=== PATIENT | male | born 1940 | race Caucasian/White ===

== ENCOUNTER 2018-09-23 23:22 | Inpatient (IN) | payer OTHER, MEDICARE ==
[~2018-09-23] VITALS: Ht 177.8 cm; Wt 92.9 kg
[~2018-09-23 23:22] MED LIST: ACET500; AMLO10 PO; ASPI81CH PO; ATEN50 PO; ATOR10 PO; Ambien5 MG PO; CLOP75 PO; DOC250 PO; FLUT.05NI; GABA300 PO; GLUCOSE PO; Glucophage1000 MG PO; HYDCHL12.5 PO; INSUASPI SC; INSULANPEN SUBD; Lantus100 UNIT/1 SQ; Lantus100 UNIT/1 SUBD; NAPR250 PO; NIAC500 PO; Nitrostat0.4 MG SL; RANI150 PO; ROSU10TA PO; ROSU5
[2018-09-23 23:43] LABS: BASOPHILS ABSOLUTE AUTO 0.01 K/mm3 (0.00-0.23); BASOPHILS PERCENT AUTO 0 % (0-2); EOSINOPHILS PERCENT AUTO 0 % (0-6); Hematocrit 36.7 % (37.0-53.0); IMMATURE GRAN ABSOLUTE AUTO 0.02 K/mm3 (0.00-0.10); IMMATURE GRAN PERCENT AUTO 0 % (0-1); LYMPHOCYTES ABSOLUTE AUTO 3.34 K/mm3 (0.84-5.20); LYMPHOCYTES PERCENT AUTO 32 % (21-46); MONOCYTES ABSOLUTE AUTO 1.12 K/mm3 (0.16-1.47); MONOCYTES PERCENT AUTO 11 % (4-13); Mean Corpuscular HGB 28.6 pg (26.0-34.0); Mean Corpuscular HGB Conc 32.7 g/dL (31.5-36.5); Mean Corpuscular Volume 88 fL (80-100); Mean Platelet Volume 9.9 fL (9.1-12.4); NEUTROPHILS ABSOLUTE AUTO 5.91 K/mm3 (1.96-9.15); NEUTROPHILS PERCENT AUTO 57 % (41-73); Platelet Count 438 K/mm3 (150-400); RDW Coefficient Variation 16.8 % (11.7-14.2); Red Blood Cell Count 4.19 M/mm3 (4.30-5.90)
[2018-09-23] MEDS ORDERED: ELIQUIS5 MG PO (23:44)
[2018-09-23] MEDS ORDERED: ALBU90OI INH (23:44)
[2018-09-23] MEDS ORDERED: Triamcinolone A15 G3 (23:48)
[2018-09-23] MEDS ORDERED: TRAM50 PO (23:49)
[2018-09-23] MEDS ORDERED: PREG150 PO (23:50)
[2018-09-23] MEDS ORDERED: ATHLETE S FOOT (23:50)
[2018-09-23] MEDS ORDERED: TAMS.4ER PO (23:50)
[2018-09-23] MEDS ORDERED: SENN187 PO (23:50)
[2018-09-23] MEDS ORDERED: Loratadine10 MG PO (23:52)
[2018-09-23] MEDS ORDERED: Isosorbide Mono30 MG PO (23:52)
[2018-09-23] MEDS ORDERED: METF500C PO (23:53)
[2018-09-23] MEDS ORDERED: MAGOXI400 PO (23:53)
[2018-09-23] MEDS ORDERED: METF500C (23:54)
[2018-09-23] MEDS ORDERED: FURO20 PO (23:54)
[2018-09-23] MEDS ORDERED: ATOR40TA PO (23:55)
[2018-09-23] MEDS ORDERED: BENZ100A PO (23:56)
[2018-09-23] MEDS ORDERED: CARV6.25 PO (23:56)
[2018-09-23] MEDS ORDERED: FERROUS SULFATE PO (23:57)
[2018-09-24 00:03] LABS: Alanine Aminotransfer (ALT/SGP 21 U/L (12-78); Albumin, Blood 3.1 g/dL (3.4-5.0); Albumin/Globulin Ratio 0.7 (0.8-1.8); Alk Phos 67 U/L (50-136); Anion Gap 8 mmol/L (6-16); Aspartate Aminotrans (AST/SGOT 14 U/L (12-37); Bilirubin, Total 0.3 mg/dL (0.1-1.0); Blood Urea Nitrogen 7 mg/dL (8-24); CO2, Blood 28 mmol/L (21-32); Calcium, Blood 8.4 mg/dL (8.5-10.1); Chloride, Blood 110 mmol/L (98-108); Creatinine, Blood 0.87 mg/dL (0.60-1.20); Globulin, Blood 4.2 g/dL (2.2-4.0); Glomerular Filtration Rate >60 (60-); Glucose, Blood 116 mg/dL (70-99); Potassium, Blood 3.3 mmol/L (3.5-5.5); Sodium, Blood 146 mmol/L (136-145); Total Protein, Blood 7.3 g/dL (6.4-8.2); Troponin I 0.113 ng/mL (0.000-0.040)
--- NOTE | 2018-09-24 03:51 | NUR ---
SHIFT SUMMARY THE PT ADMITTED FOR CP WITH ELEVATED TROPS OF 0.113. FULL CODE. ADA DIET. 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 CBG AT AND HS. NO MECHANICAL VTE PROPHYLAXIS. LOVENOX. PT REPORTED TO HAVE HAD AN AK IN APRIL WITH THE PLACEMENT OF 4 STENTS. 18G IV TO R FA AND 20 G IV TO L FA. PT NOTED TO HAVE LABORED BREATHING OFF ON THAT THE PT REPORTS BEGAN IN JUNE WITH AN UNKNOWN CAUSE. 2L O2 VIA NC WITH NONE AT PLOF. HOWEVER, THE PT REPORTS THAT HE HAS USED HIS 'S HOME O2 AT TIMES TO ASSIST WITH BREATHING. TAKES MEDS WHOLE WITH WATER. 1 PERSON ASSIST WITH TRANSFERS. [facility]. THE PT REPORTED SHOVELING SNOW THIS AFTERNOON FOR ABOUT AN HOUR WHEN HE BECAME SOB. THE PT TOOK A BREAK AND WAS FEELING FIND BUT AFTER CONTINUEING STARTED HAVING SEVERED L SIDED CP THAT RADIATED TO THE LE ARM WITH ASSOCIATED N/T. THE PT IS ALERT, ORIENTED, PLEASENT, AND COOPERATIVE HERE FOR OBSERVATION. THE PT HAS APPEARED TO SLEEP COMFORTABLY WITH NO APPARENT SIGNS OF ACUTE DISTRESS. ABLE TO MAKE NEEDS KNOWN AND CALL LIGHT IN REACH.
[2018-09-24 07:55] LABS: Hematocrit 34.2 % (37.0-53.0); Hemoglobin 10.8 g/dL (13.5-17.5); Mean Corpuscular HGB 27.5 pg (26.0-34.0); Mean Corpuscular HGB Conc 31.6 g/dL (31.5-36.5); Mean Corpuscular Volume 87 fL (80-100); Mean Platelet Volume 10.3 fL (9.1-12.4); Platelet Count 414 K/mm3 (150-400); RDW Standard Deviation 54.7 fL (35.1-46.3); Red Blood Cell Count 3.93 M/mm3 (4.30-5.90); White Blood Cell Count 9.61 K/mm3 (4.00-11.30)
[2018-09-24 08:10] LABS: International Normalized Ratio 0.95; Prothrombin Time Results 10.1 Sec (9.7-11.5)
[2018-09-24 08:15] LABS: Alanine Aminotransfer (ALT/SGP 17 U/L (12-78); Albumin, Blood 2.9 g/dL (3.4-5.0); Albumin/Globulin Ratio 0.7 (0.8-1.8); Alk Phos 62 U/L (50-136); Anion Gap 5 mmol/L (6-16); Aspartate Aminotrans (AST/SGOT 15 U/L (12-37); Bilirubin, Total 0.4 mg/dL (0.1-1.0); Blood Urea Nitrogen 8 mg/dL (8-24); Bun/Creatinine Ratio 9.8 (12.0-20.0); CO2, Blood 29 mmol/L (21-32); Calcium, Blood 8.2 mg/dL (8.5-10.1); Chloride, Blood 110 mmol/L (98-108); Creatinine, Blood 0.82 mg/dL (0.60-1.20); Globulin, Blood 3.9 g/dL (2.2-4.0); Glomerular Filtration Rate >60 (60-); Glucose, Blood 78 mg/dL (70-99); Potassium, Blood 2.9 mmol/L (3.5-5.5); Sodium, Blood 144 mmol/L (136-145); Total Protein, Blood 6.8 g/dL (6.4-8.2)
[2018-09-24 08:18] LABS: Troponin I 0.097 ng/mL (0.000-0.040)
--- NOTE | 2018-09-24 11:14 | NUR ---
ECHOCARDIOGRAM COMPLETE
--- NOTE | 2018-09-24 11:32 | NUR ---
CHEST PAIN PT REPORTED CP WHICH BEGAN @ 0945 AND BEGAN TO SLOWLY RISE AND STATED HE WAS NEEDING PAIN MED AT FIRST, BY 1030 LEVEL 01/29, NOT RELIEVED BY FENT. CALLED [facility]ERGENCY [facility] EMT TO VERIFY OK TO GIVE NITRO. PT REPORTED REFLIEF 09/01 AFTER 1 NITRO @ 1055. 1138 PT RESTING, STATES PAIN HAS SUBSIDED. DR JUDGE EXAMINED PT DURING CP, NEW ORDERS REC, ENTERED BY DOCTOR.
[2018-09-24 15:26] LABS: Anion Gap 9 mmol/L (6-16); Blood Urea Nitrogen 8 mg/dL (8-24); Bun/Creatinine Ratio 10.4 (12.0-20.0); CO2, Blood 27 mmol/L (21-32); Calcium, Blood 8.2 mg/dL (8.5-10.1); Chloride, Blood 109 mmol/L (98-108); Creatinine, Blood 0.77 mg/dL (0.60-1.20); Glomerular Filtration Rate >60 (60-); Glucose, Blood 127 mg/dL (70-99); Potassium, Blood 3.3 mmol/L (3.5-5.5); Sodium, Blood 145 mmol/L (136-145)
--- NOTE | 2018-09-24 16:13 | NUR ---
SHIFT SUMMARY CP THIS SHIFT NOTED PRIOR, DR WATSONTRATE AWARE, PT TRANSPORTED TO [facility] @ 1330 PERSONAL BELONGINGS W/PT, REPORT CALLED TO SARWAT AGUERO RN FOR XFER TO [facility] @ 2122, PRESENT WHEN PT WENT TO [facility] AND HAS BEEN NOTIFIED OF NEW ROOM ASSIGNMENT.
--- NOTE | 2018-09-24 16:50 | NUR ---
PT AWAKE, CONVERSING WITH NURSING STAFF STATUS POST PROCEDURE. NO C/O PAIN OR DISCOMFORT. NO BLEEDING OR SWELLING NOTED TO RIGHT WRIST. PT SIPPING ON WATER. HAS TAKEN PLAVIX AND ASPIRIN PER ORDERS. SITTING IN RECLINER AT THIS TIME. AWAITING PCU BED.
--- NOTE | 2018-09-24 17:00 | NUR ---
PT CONTINUES TO SIP ON WATER. HAS NO C/O PAIN OR DISCOMFORT. RIGHT WRIST SITE REMAINS STABLE. NO BLEEDING OR SWELLING NOTED. CMS TO RIGHT HAND WNL.
--- NOTE | 2018-09-24 17:21 | NUR ---
PT RESTING IN CHAIR. NO C/O NOTED. CMS TO RIGHT HAND WNL. NO BLEEDING OR SWELLING NOTED. NO C/O PAIN OR DISCOMFORT.
--- NOTE | 2018-09-24 18:06 | NUR ---
TO PCU 10. REPORT GIVEN TO LAY GALINDO. PT AWAKE, ALERT UPON TRANSFER. NO CHANGE IN CONDITION OR STATUS. REVIEWED RIGHT WRIST SITE TOGETHER. NO ISSUES. CMS INTACT.
[2018-09-24 18:47] LABS: Troponin I 0.577 ng/mL (0.000-0.040)
--- NOTE | 2018-09-24 19:07 | NUR ---
END OF SHIFT; PT TO PCU FROM BREWING DIRECTOR. 3 STENTS PLACED IN RCA. DINNER TRAY ORDERED FOR PATIENT ON ARRIVAL TO PCU. PT IS AO X 4 ON ARRIVAL. VITAL SIGNS ARE STABLE. 12ML AIR IN TR BAND SITE. NO BLEEDING NOTED. HAND OFF TO NOC SHIFT RN GRIS WHO WILL ASSUME CARE AND COMFORT OF THIS PATIENT.
--- NOTE | 2018-09-25 01:26 | NUR ---
TR BAND BLEED TR BAND COMPLETELY DEFLATED WNL W/OUT BLEEDING, NO HEMATOMA. UPON REASSESSMENT AROUND [id number], PT NOTED TO HAVE OOZING UNDER TR BAND. TR BAND REINFLATED W/ 4 MLS AND THEN ADDITIONAL 3MLS UPON NEXT ASSESSMENT FOR A TOTAL OF 7 MLS AIR. WILL CONTINUE TO MONITOR AND REATTEMPT DEFLATION T/O SHIFT.
[2018-09-25 05:24] LABS: BASOPHILS ABSOLUTE AUTO 0.03 K/mm3 (0.00-0.23); BASOPHILS PERCENT AUTO 0 % (0-2); EOSINOPHILS ABSOLUTE AUTO 0.02 K/mm3 (0.00-0.68); EOSINOPHILS PERCENT AUTO 0 % (0-6); Hematocrit 32.3 % (37.0-53.0); Hemoglobin 10.3 g/dL (13.5-17.5); IMMATURE GRAN ABSOLUTE AUTO 0.03 K/mm3 (0.00-0.10); IMMATURE GRAN PERCENT AUTO 0 % (0-1); LYMPHOCYTES PERCENT AUTO 24 % (21-46); MONOCYTES ABSOLUTE AUTO 1.02 K/mm3 (0.16-1.47); MONOCYTES PERCENT AUTO 9 % (4-13); Mean Corpuscular HGB 27.8 pg (26.0-34.0); Mean Corpuscular HGB Conc 31.9 g/dL (31.5-36.5); Mean Corpuscular Volume 87 fL (80-100); Mean Platelet Volume 10.8 fL (9.1-12.4); NEUTROPHILS ABSOLUTE AUTO 7.15 K/mm3 (1.96-9.15); NEUTROPHILS PERCENT AUTO 66 % (41-73); Platelet Count 387 K/mm3 (150-400); RDW Standard Deviation 54.3 fL (35.1-46.3); White Blood Cell Count 10.85 K/mm3 (4.00-11.30)
[2018-09-25 05:43] LABS: Anion Gap 10 mmol/L (6-16); Blood Urea Nitrogen 10 mg/dL (8-24); Bun/Creatinine Ratio 11.4 (12.0-20.0); CO2, Blood 25 mmol/L (21-32); Calcium, Blood 8.2 mg/dL (8.5-10.1); Chloride, Blood 111 mmol/L (98-108); Creatinine, Blood 0.88 mg/dL (0.60-1.20); Glomerular Filtration Rate >60 (60-); Glucose, Blood 125 mg/dL (70-99); Potassium, Blood 3.5 mmol/L (3.5-5.5); Sodium, Blood 146 mmol/L (136-145)
--- NOTE | 2018-09-25 07:42 | NUR ---
SHIFT SUMMARY PT A&O X4. R RADIAL ACCESS TR BAND CARE W/ SMALL AMOUNT OF BLEEDING AFTER DEFLATION. TR BAND REINFLATED, THEN DEFLATION PROCESS AND REMOVAL WNL THEREAFTER. TEGADERM DRESSING AND ARM BOARD IN PLACE TO R ARM. EKG DONE. MONITOR SHOWS NSR, HR 80'S-90'S. LUNG SOUNDS CLEAR T/O, SPO2 > 92% ON 2L NC. NO PT C/O PAIN OR DISCOMFORT T/O SHIFT. REPORT GIVEN TO DAY SHIFT RN.
--- NOTE | 2018-09-25 08:24 | NUR ---
Patient has given permission to deputy director of nursing providing care.
--- NOTE | 2018-09-25 08:29 | NUR ---
Patient was given breakfast tray at 0815. Patient alert and oriented X 4. Patient has pleasant affect and took all PO medications whole with water. Patient states no pain at this time. Medication was given by nursing program manager and supervised by nurse Acuña.
[2018-09-25] MEDS ORDERED: ASPI81CH PO (10:00)
[2018-09-25] MEDS ORDERED: TYLECOD3 PO (11:29)
[2018-09-25] MEDS ORDERED: ONDA4ODT MM (11:30)
[2018-09-25] MEDS ORDERED: SPIR25 PO (11:31)
== END 2018-09-25 11:54 | disposition home or self-care (01) | DRG 251 ==
LOC: ER 23:22 → MEDS 23:23 → PCU 09-24 17:50
PROVIDERS: Emergency Medicine; Family Medicine; Internal Medicine Cardiovascular Disease; ADMIT Internal Medicine
PROC: 02703ZZ Dilation of Coronary Artery, One Artery, Percutaneous Approach (ICD-10-PCS; principal; 2018-09-24)
PROC: 4A023N7 Measurement of Cardiac Sampling and Pressure, Left Heart, Percutaneous Approach (ICD-10-PCS; 2018-09-24)
PROC: B2111ZZ Fluoroscopy of Multiple Coronary Arteries using Low Osmolar Contrast (ICD-10-PCS; 2018-09-24)
DX: I21.4 Non-ST elevation (NSTEMI) myocardial infarction (principal); I25.10 Atherosclerotic heart disease of native coronary artery without angina pectoris; Z95.5 Presence of coronary angioplasty implant and graft; E78.00 Pure hypercholesterolemia, unspecified; E78.5 Hyperlipidemia, unspecified; E87.6 Hypokalemia; Z79.82 Long term (current) use of aspirin; Z79.02 Long term (current) use of antithrombotics/antiplatelets; I10 Essential (primary) hypertension; G47.33 Obstructive sleep apnea (adult) (pediatric); E11.40 Type 2 diabetes mellitus with diabetic neuropathy, unspecified; Z79.4 Long term (current) use of insulin
CPT/HCPCS: 36415; 71046; 80048; 80053; 82550; 82947; 84484; 85025; 85027; 85347; 85610; 85730; 86850; 86900; 86901; 93005; 93010; 93306; 93458; 94762; 96365; 96374; 96375; 96376; 99152; 99153; 99285-25; C1725; C1769; C1874; C1887; C1894; C9600; G0378; J1644; J1650; J2250; J2270; J3010; J3480; J7030; J7050; Q9967